=== PATIENT | female | born 1995 | race American Indian/Alaskan Native ===

== ENCOUNTER 2020-01-10 07:51 | Day surgery (SDC) | payer BC ==
[2020-01-10] MEDS ORDERED: LACTATED RINGERS 1,000 ML IV SCH (08:05)
[2020-01-10 08:40] VITALS: BP 113/69
--- NOTE | 2020-01-10 08:47 | Anesthesia Consultation ---
Anesthesia Consult and Med Hx Date of service: 01/10/20 - Airway Anesthetic Teeth Evaluation: Good ROM Head & Neck: Adequate Mental/Hyoid Distance: Adequate Mallampati Class: Class II Intubation Access Assessment: Probably Good - Pre-Operative Health Status ASA Pre-Surgery Classification: ASA1 Proposed Anesthetic Plan: General - Central Nervous System Hx Psychiatric Problems: No - Other Systems Hx Alcohol Use: Yes (Occas) Hx Cancer: No - Additional Comments Anesthesia Medical History Comments: Ovarian cyst
--- NOTE | 2020-01-10 08:48 | Anesthesia Day of Surgery ---
Anesthesia Day of Surgery - Day of Surgery Patient Examined: Yes Patient H&P Reviewed: Yes Patient is NPO: Yes
[2020-01-10] MEDS ORDERED: FAMOTIDINE 20 MG/2 ML INJ IV NR (09:00)
[2020-01-10] MEDS ORDERED: MIDAZOLAM 2 MG/2 ML INJ IV NR (09:00)
[2020-01-10] MEDS ORDERED: BUPIVACAINE/PF (0.5%) 5 MG/1 ML 30 ML VIAL INFILTRATI ONE (09:32)
[2020-01-10] MEDS ORDERED: propofoL 200 MG/20 ML VIAL IV ONE (09:43)
[2020-01-10] MEDS ORDERED: PHENYLEPHRINE/NS 1,000 MCG/10 ML SYRINGE (OR USE) IV ONE (09:43)
[2020-01-10] MEDS ORDERED: GLYCOPYRROLATE 0.4 MG/2 ML INJ ONE (09:43)
[2020-01-10] MEDS ORDERED: LIDOCAINE MPF (2%) 20 MG/1 ML VIAL 5 ML ONE (09:43)
[2020-01-10] MEDS ORDERED: NEOSTIGMINE 10MG/10 ML INJ MDV ONE (09:43)
[2020-01-10] MEDS ORDERED: ONDANSETRON 4 MG/2 ML INJ ONE (09:43)
[2020-01-10] MEDS ORDERED: fentaNYL 250 MCG/5 ML INJ ONE (09:43)
[2020-01-10] MEDS ORDERED: SUCCINYLCHOLINE CHLORIDE 200 MG/10 ML INJ MDV ONE (09:43)
[2020-01-10] MEDS ORDERED: ROCURONIUM 50 MG/5 ML INJ IV ONE (09:43)
--- NOTE | 2020-01-10 10:38 | Event Note ---
Date: 01/10/20 Surgery cancelled. PT had an U/S on 01/06 showing a 9 cm complex, "solid" cyst on the right ovary but this was not palpable on exam on 01/07 in the office. As a result, U/S done prior to surgery to confirm and U/S today showed no ovarian cyst, but moderate amount of free fluid. PT notes pain is still present but is improving over the last few days. PT also notes no BM in last 3 days (stool softener advised). No anemic sxs. So pt likely had a ruptured ovarian cyst, the fluid from which is expected to resorb. As a result, surgery was cancelled. PT to f/u as needed in the office. Pt counseled and all questions answered.
--- NOTE | 2020-01-10 11:11 | Ultrasound Report ---
TRANSABDOMINAL PELVIC AND TRANSVAGINAL ULTRASOUND HISTORY: PRE-OP SCAN BEFORE OVARIAN CYST SURGERY COMPARISON: None. TECHNIQUE: Routine transabdominal and transvaginal pelvic ultrasound performed. FINDINGS: Uterus: Normal size and echogenicity without uterine mass. The uterus measures 6.7 x 3.3 x 4.1 cm. Endometrium: Normal in thickness. Right Ovary: A normal right ovary is not identified. A heterogeneous relatively hyperechoic right ad nexal mass measures 3.3 x 2.1 x 3.7 cm. Left Ovary: A partially collapsed cyst of the left ovary measures 1.9 cm. The ovary measures 2.9 x 1. 9 x 2.9 cm. Additional findings: Moderate free pelvic fluid with internal echoes and echogenic material in the ri ght adnexa suggestive of hemoperitoneum.. IMPRESSION: 1. A 3.7 cm right adnexal mass with features suggestive of a hemorrhagic mass. This may be a hemorrha gic cyst with rupture given the finding of free pelvic fluid and probable hemoperitoneum. 2. Ruptured ectopic would be a possibility if the test is positive. I spoke to guarding these findings on 01/10/2020 at 11:07 AM EST. Signer Name: Jere Loving MD Signed: 01/10/2020 11:07 AM Workstation Name: [id number]
--- NOTE | 2020-01-10 11:11 | Ultrasound Report ---
TRANSABDOMINAL PELVIC AND TRANSVAGINAL ULTRASOUND HISTORY: PRE-OP SCAN BEFORE OVARIAN CYST SURGERY COMPARISON: None. TECHNIQUE: Routine transabdominal and transvaginal pelvic ultrasound performed. FINDINGS: Uterus: Normal size and echogenicity without uterine mass. The uterus measures 6.7 x 3.3 x 4.1 cm. Endometrium: Normal in thickness. Right Ovary: A normal right ovary is not identified. A heterogeneous relatively hyperechoic right ad nexal mass measures 3.3 x 2.1 x 3.7 cm. Left Ovary: A partially collapsed cyst of the left ovary measures 1.9 cm. The ovary measures 2.9 x 1. 9 x 2.9 cm. Additional findings: Moderate free pelvic fluid with internal echoes and echogenic material in the ri ght adnexa suggestive of hemoperitoneum.. IMPRESSION: 1. A 3.7 cm right adnexal mass with features suggestive of a hemorrhagic mass. This may be a hemorrha gic cyst with rupture given the finding of free pelvic fluid and probable hemoperitoneum. 2. Ruptured ectopic would be a possibility if the test is positive. I spoke to guarding these findings on 01/10/2020 at 11:07 AM EST. Signer Name: eJre Loving MD Signed: 01/10/2020 11:07 AM Workstation Name: [id number]
== END 2020-01-10 07:52 | disposition home or self-care (01) ==
LOC: OR 07:51
PROVIDERS: ATTEND Obstetrics & Gynecology
DX: R10.2 Pelvic and perineal pain (principal); N83.209 Unspecified ovarian cyst, unspecified side; Z53.8 Procedure and treatment not carried out for other reasons; G43.909 Migraine, unspecified, not intractable, without status migrainosus; Z72.89 Other problems related to lifestyle; Z98.890 Other specified postprocedural states
CPT/HCPCS: 76830; 76856; 81025; J0330; J2370; J2405; J2704; J2710; J3010; J7120; J2250

== ENCOUNTER 2020-07-14 17:59 | Emergency (ER) | payer BC ==
--- NOTE | 2020-07-14 18:56 | Event Note ---
ED Screening Note Date of service: 07/14/20 Time: 18:54 ED Screening Note: 25-year-old -[place] female presents to emergency for intermittent lower abdominal pain. Patient states that she had a cyst that ruptured back in December and since then she has been having intermittent discomfort. Patient denies any vaginal discharge no vaginal bleeding. This initial assessment/diagnostic orders/clinical plan/treatment(s) is/are subject to change based on patients health status, clinical progression and re- assessment by fellow clinical providers in the ED. Further treatment and workup at subsequent clinical providers discretion. Patient/guardian urged not to elope from the ED as their condition may be serious if not clinically assessed and managed. Initial orders include:
[2020-07-14 19:28] LABS: Bilirubin,Urine NEG (Negative); Blood,Urine NEG (Negative); Color,Urine Straw (Yellow); Protein,Urine <15 mg/dL mg/dL (Negative); RBC,Urine < 1.0 /HPF (0.0-6.0); Urobilinogen,Urine < 2.0 mg/dL (<2.0)
[2020-07-14 19:41] LABS: HCG Qualitative,Urine Negative (Negative); WBC,Urine < 1.0 /HPF (0.0-6.0)
--- NOTE | 2020-07-15 01:35 | Ultrasound Report ---
ULTRASOUND PELVIS INDICATION / CLINICAL INFORMATION: left adnexa pain. TECHNIQUE: Transabdominal and Transvaginal. Duplex Color Doppler used: Yes. COMPARISON: Ultrasound dated 01/10/20 FINDINGS: UTERUS: - Appearance: No significant abnormality. - Size (cm): 7.4 x 6.4 x 4.9 - Endometrial Complex (if present): No significant abnormality.. Thickness in cm (if measured) = 0.7 - Mass or cyst: None. - Additional findings: None. RIGHT ADNEXA: Complex right ovarian cyst measuring 3.7 x 3.0 x 3.7 cm. Normal color Doppler blood oswaldo w. LEFT ADNEXA: No significant ovarian cyst or mass. Normal color Doppler blood flow. URINARY BLADDER: No significant abnormality. FREE FLUID: Moderate amount of free fluid in the right adnexa and cul-de-sac. ADDITIONAL FINDINGS: None. IMPRESSION: 1. 3.7 cm complex right ovarian cyst with moderate free fluid in the pelvis. This complex cyst is in the same vicinity as the echogenic right adnexal lesion noted on the previous ultrasound. 2. Left ovary and adnexa show no acute abnormality. Signer Name: Nay Alatorre MD Signed: 07/15/2020 1:30 AM Workstation Name: [id number]
--- NOTE | 2020-07-15 02:14 | Emergency Department Report ---
ED Abdominal Pain HPI - General Chief Complaint: Abdominal Pain Stated Complaint: ABD PAIN Time Seen by Provider: 07/14/20 22:12 Source: patient Mode of arrival: Ambulatory Limitations: No Limitations - History of Present Illness Initial Comments: 25-year-old F [place] female resents emergency department complaining of longstanding history of ovarian cyst started back in December 2019 requiring surgical intervention which spontaneously ruptured. States she was was follow- up with [facility] for repeat ultrasound last month however she felt her to do so an d has been having this vague pain with significantly worsening since that time reports no vaginal discharge no vaginal bleeding, no fever, chills, sweats no chest pain or palpitations no nausea vomiting MD Complaint: abdominal pain - Related Data Home Medications Medication Instructions Recorded Confirmed Last Taken Ibuprofen [Motrin] 800 mg PO Q8HR PRN 01/09/20 01/10/20 01/09/20 22:00 Previous Rx's Medication Instructions Recorded Last Taken Type Ketorolac [Toradol] 10 mg PO Q6H PRN #14 tablet 07/15/20 Unknown Rx Allergies Allergy/AdvReac Type Severity Reaction Status Date / Time No Known Allergies Allergy Unverified 01/09/20 10:46 ED Review of Systems ROS: Stated complaint: ABD PAIN Other details as noted in HPI Comment: All other systems reviewed and negative ED Past Medical Hx - Past Medical History Previous Medical History?: Yes Hx Headaches / Migraines: Yes (Migraines) Additional medical history: pelvic pain - Surgical History Past Surgical History?: No - Social History Smoking Status: Current Every Day Smoker Substance Use Type: Alcohol - Medications Home Medications: Home Medications Medication Instructions Recorded Confirmed Last Taken Type Ibuprofen [Motrin] 800 mg PO Q8HR PRN 01/09/20 01/10/20 01/09/20 22:00 History Ketorolac [Toradol] 10 mg PO Q6H PRN #14 tablet 07/15/20 Unknown Rx ED Physical Exam - General Limitations: No Limitations General appearance: alert, in no apparent distress - Head Head exam: Present: atraumatic, normocephalic, normal inspection - Eye Eye exam: Present: normal appearance, PERRL, EOMI. Absent: scleral icterus, conjunctival injection, periorbital swelling - ENT ENT exam: Present: normal exam, normal orophraynx, mucous membranes moist, TM's normal bilaterally - Neck Neck exam: Present: normal inspection - Respiratory Respiratory exam: Present: normal lung sounds bilaterally. Absent: respiratory distress, accessory muscle use - Cardiovascular Cardiovascular Exam: Present: regular rate, normal rhythm. Absent: systolic murmur, diastolic murmur, rubs, gallop - GI/Abdominal GI/Abdominal exam: Present: soft, tenderness (To the bilateral adnexa. No Rovsing, no [place] and no lower quadrant tenderness), normal bowel sounds - Extremities Exam Extremities exam: Present: normal inspection - Back Exam Back exam: Present: normal inspection - Neurological Exam Neurological exam: Present: alert, oriented X3 - Psychiatric Psychiatric exam: Present: normal affect, normal mood - Skin Skin exam: Present: warm, dry, intact, normal color. Absent: rash ED Course Vital Signs 07/14/20 07/15/20 18:23 02:13 Temperature 98.5 F 98.7 F Pulse Rate 84 80 Respiratory 18 18 Rate Blood Pressure 127/76 Blood Pressure 125/72 [Left] O2 Sat by Pulse 98 98 Oximetry ED Medical Decision Making - Radiology Data Radiology results: report reviewed Referring Physician:PATRIC MIRANDAPatient Name:KAMILAH BARNESPatient ID:[id number] of :[id number]:FemaleAccession:[id number] Date:9906-12-51Whpgoc Status:[place] [address] Ultrasound Report Signed Patient: KAMILAH BARNES MR#: [id number] : 1995 Acct:[id number] Age/Sex: 25 / F ADM Date: 07/14/20 Loc: ED Attending Dr: Ordering Physician: VERONICA ONTIVEROS Date of Service: 07/14/20 Procedure(s): US transvaginal Accession Number(s): [id number] cc: VERONICA ONTIVEROS ULTRASOUND PELVIS INDICATION / CLINICAL INFORMATION: left adnexa pain. TECHNIQUE: Transabdominal and Transvaginal. Duplex Color Doppler used: Yes. COMPARISON: Ultrasound dated 01/10/20 FINDINGS: UTERUS: - Appearance: No significant abnormality. - Size (cm): 7.4 x 6.4 x 4.9 - Endometrial Complex (if present): No significant abnormality.. Thickness in cm (if measured) = 0.7 - Mass or cyst: None. - Additional findings: None. RIGHT ADNEXA: Complex right ovarian cyst measuring 3.7 x 3.0 x 3.7 cm. Normal color Doppler blood flow. LEFT ADNEXA: No significant ovarian cyst or mass. Normal color Doppler blood flow. URINARY BLADDER: No significant abnormality. FREE FLUID: Moderate amount of free fluid in the right adnexa and cul-de-sac. ADDITIONAL FINDINGS: None. IMPRESSION: 1. 3.7 cm complex right ovarian cyst with moderate free fluid in the pelvis. This complex cyst is in the same vicinity as the echogenic right adnexal lesion noted on the previous ultrasound. 2. Left ovary and adnexa show no acute abnormality. Signer Name: Nay Alatorre MD Signed: 07/15/2020 1:30 AM Workstation Name: [id number] Transcribed By: ADALI Dictated By: Roel Alatorre MD Electronically Authenticated By: Roel Alatorre MD Signed Date/Time: 07/15/20129 DD/ 5 TD/TT: Critical care attestation.: If time is entered above; I have spent that time in minutes in the direct care of this critically ill patient, excluding procedure time. ED Disposition Clinical Impression: Ovarian cyst Disposition: DC-01 TO HOME OR SELFCARE Is pt being admited?: No Does the pt Need Aspirin: No Condition: Stable Instructions: Ovarian Cyst (ED), Abdominal Pain (ED) Prescriptions: Ketorolac [Toradol] 10 mg PO Q6H PRN #14 tablet PRN Reason: Pain Referrals: PRIMARY CAREMD [Primary Care Provider] - 3-5 Days [facility] [Provider Group] - 3-5 Days [facility] [Provider Group] - 3-5 Days Forms: Work/School Release Form(ED)
[2020-07-15 02:52] VITALS: BP 125/72
== END 2020-07-15 02:13 | disposition home or self-care (01) ==
LOC: ED 17:59
DX: N83.291 Other ovarian cyst, right side (principal); G43.909 Migraine, unspecified, not intractable, without status migrainosus; F17.200 Nicotine dependence, unspecified, uncomplicated
CPT/HCPCS: 76830; 76856; 81001; 81025